=== PATIENT | female | born 1960 | race Caucasian/White ===

== ENCOUNTER → 2016-08-04 | Outpatient (CLI) | payer BC, OTHER | END | disposition home or self-care (01) | LOC: AMB 12:25 | PROC: 07BJ3ZX Excision of Left Inguinal Lymphatic, Percutaneous Approach, Diagnostic (ICD-10-PCS; principal; 2016-08-04) | DX: C85.90 Non-Hodgkin lymphoma, unspecified, unspecified site (principal); R19.09 Other intra-abdominal and pelvic swelling, mass and lump; K21.9 Gastro-esophageal reflux disease without esophagitis; E78.5 Hyperlipidemia, unspecified; E66.01 Morbid (severe) obesity due to excess calories; E55.9 Vitamin D deficiency, unspecified; Z83.3 Family history of diabetes mellitus; Z82.3 Family history of stroke; Z80.1 Family history of malignant neoplasm of trachea, bronchus and lung; Z82.49 Family history of ischemic heart disease and other diseases of the circulatory system; Z87.891 Personal history of nicotine dependence; Z88.0 Allergy status to penicillin; Z68.43 Body mass index [BMI] 50.0-59.9, adult | CPT/HCPCS: 88305 ==

== ENCOUNTER 2016-08-23 13:24 | Day surgery (SDC) | payer BC, OTHER ==
[~2016-08-23] VITALS: Ht 180.3 cm; Wt 155.0 kg
[~2016-08-23 13:24] MED LIST: COZAAR50 MG PO; MICROZIDE12.5 M1 PO; MOTRIN IB200 MG PO; NEXIUM20 MG PO; NEXIUM40 MG PO
[2016-08-23 14:03] VITALS: BP 143/80
[2016-08-23] MEDS ORDERED: NORCO 5/3251 TABLET PO (17:02)
[2016-08-23 19:08] VITALS: BP 127/79
[2016-08-23 19:45] VITALS: BP 159/80
[2016-08-26 08:36] LABS: INTERNAL CONTROL VALID? YES
== END 2016-08-23 19:53 | disposition home or self-care (01) ==
LOC: SDC 13:24
PROVIDERS: Surgery
PROC: 07BJ0ZX Excision of Left Inguinal Lymphatic, Open Approach, Diagnostic (ICD-10-PCS; principal; 2016-08-23)
DX: C85.15 Unspecified B-cell lymphoma, lymph nodes of inguinal region and lower limb (principal); E66.01 Morbid (severe) obesity due to excess calories; Z68.43 Body mass index [BMI] 50.0-59.9, adult; K21.9 Gastro-esophageal reflux disease without esophagitis; E78.5 Hyperlipidemia, unspecified; E55.9 Vitamin D deficiency, unspecified; Z87.891 Personal history of nicotine dependence; Z88.0 Allergy status to penicillin; Z88.5 Allergy status to narcotic agent
CPT/HCPCS: 84703; 88305; J0131; J0330; J0690; J1100; J1170; J1885; J2250; J2405; J2765; J3010; J7120

== ENCOUNTER → 2016-09-01 | Outpatient (CLI) | payer BC, OTHER ==
[~2016-09-01] VITALS: Ht 180.3 cm; Wt 155.4 kg
[~2016-09-01] MED LIST changes: +NORCO 5/3251 TABLET PO
== END | disposition home or self-care (01) ==
LOC: AMB 10:46
PROC: 0DJ08ZZ Inspection of Upper Intestinal Tract, Via Natural or Artificial Opening Endoscopic (ICD-10-PCS; principal; 2016-09-01)
DX: K21.9 Gastro-esophageal reflux disease without esophagitis (principal); I10 Essential (primary) hypertension; E66.01 Morbid (severe) obesity due to excess calories; Z87.891 Personal history of nicotine dependence; Z83.3 Family history of diabetes mellitus; Z82.49 Family history of ischemic heart disease and other diseases of the circulatory system; Z68.42 Body mass index [BMI] 45.0-49.9, adult
CPT/HCPCS: J2250; J2405; J3010

== ENCOUNTER 2016-09-08 12:00 | Day surgery (SDC) | payer BC, OTHER ==
[~2016-09-08] VITALS: Ht 177.8 cm; Wt 156.4 kg
[2016-09-08 13:01] VITALS: BP 155/91
[2016-09-08] MEDS ORDERED: NORCO 5/3251 TABLET PO (15:52)
[2016-09-08 16:51] VITALS: BP 126/62
[2016-09-08 18:10] VITALS: BP 149/71
[2016-09-09 09:14] LABS: INTERNAL CONTROL VALID? YES
== END 2016-09-08 18:15 | disposition home or self-care (01) ==
LOC: SDC 12:00 → 2SOUTH 14:30 → SDC 18:15
PROVIDERS: Surgery
PROC: 05HM33Z Insertion of Infusion Device into Right Internal Jugular Vein, Percutaneous Approach (ICD-10-PCS; principal; 2016-09-08)
DX: C83.35 Diffuse large B-cell lymphoma, lymph nodes of inguinal region and lower limb (principal); I10 Essential (primary) hypertension; I87.8 Other specified disorders of veins; E78.5 Hyperlipidemia, unspecified; E66.01 Morbid (severe) obesity due to excess calories; Z68.42 Body mass index [BMI] 45.0-49.9, adult; N28.1 Cyst of kidney, acquired; K21.9 Gastro-esophageal reflux disease without esophagitis; E55.9 Vitamin D deficiency, unspecified; Z87.891 Personal history of nicotine dependence; Z88.0 Allergy status to penicillin; Z83.3 Family history of diabetes mellitus; Z82.3 Family history of stroke; Z80.1 Family history of malignant neoplasm of trachea, bronchus and lung; Z82.49 Family history of ischemic heart disease and other diseases of the circulatory system
CPT/HCPCS: 71010; 84703; C1751; J0690; J2250; J2405; J2765; J3010; J3370; J7030

== ENCOUNTER → 2016-09-15 | Outpatient (CLI) | payer BC, OTHER | END | disposition home or self-care (01) | LOC: EKG 12:50 | DX: I27.2 Other secondary pulmonary hypertension (principal); R94.31 Abnormal electrocardiogram [ECG] [EKG] | CPT/HCPCS: 93306 ==

== ENCOUNTER 2016-12-08 08:50 | Day surgery (SDC) | payer BC, OTHER ==
[~2016-12-08] VITALS: Ht 177.8 cm; Wt 158.7 kg
[~2016-12-08 08:50] MED LIST changes: +ADVIL,NUPRIN,M200 MG PO; +CLARITIN,ALAVAR10 MG PO; +COMPAZINE10 MG PO; +PREDNISONE50 MG PO; +ZUPLENZ8 MG PO
[2016-12-08 09:55] VITALS: BP 135/83
[2016-12-08 09:56] VITALS: BP 135/83
[2016-12-08] MEDS ORDERED: NORCO 5/3251 TABLET PO (12:27)
[2016-12-08 13:15] VITALS: BP 125/80
[2016-12-08 13:42] VITALS: BP 148/73
== END 2016-12-08 14:10 | disposition home or self-care (01) ==
LOC: SDC
PROC: 0JPT0WZ Removal of Totally Implantable Vascular Access Device from Trunk Subcutaneous Tissue and Fascia, Open Approach (ICD-10-PCS; principal; 2016-12-08)
DX: Z45.2 Encounter for adjustment and management of vascular access device (principal); C83.35 Diffuse large B-cell lymphoma, lymph nodes of inguinal region and lower limb; Z92.21 Personal history of antineoplastic chemotherapy; E66.01 Morbid (severe) obesity due to excess calories; Z68.42 Body mass index [BMI] 45.0-49.9, adult; K21.9 Gastro-esophageal reflux disease without esophagitis; E78.5 Hyperlipidemia, unspecified; I10 Essential (primary) hypertension; I87.8 Other specified disorders of veins; Z80.1 Family history of malignant neoplasm of trachea, bronchus and lung; Z87.891 Personal history of nicotine dependence
CPT/HCPCS: J0690; J2250; J3010; Q0175

== ENCOUNTER → 2017-02-18 | Outpatient (CLI) | payer BC ==
[~2017-02-18] VITALS: Ht 177.8 cm; Wt 160.9 kg
== END | disposition home or self-care (01) ==
LOC: AMB 08:58
PROC: 0DBN8ZX Excision of Sigmoid Colon, Via Natural or Artificial Opening Endoscopic, Diagnostic (ICD-10-PCS; principal; 2017-02-18)
DX: Z12.11 Encounter for screening for malignant neoplasm of colon (principal); D12.5 Benign neoplasm of sigmoid colon; K57.30 Diverticulosis of large intestine without perforation or abscess without bleeding; C83.35 Diffuse large B-cell lymphoma, lymph nodes of inguinal region and lower limb; E66.01 Morbid (severe) obesity due to excess calories; Z68.43 Body mass index [BMI] 50.0-59.9, adult; K21.9 Gastro-esophageal reflux disease without esophagitis; E78.5 Hyperlipidemia, unspecified; I10 Essential (primary) hypertension; I87.8 Other specified disorders of veins; E55.9 Vitamin D deficiency, unspecified; Z87.891 Personal history of nicotine dependence; Z92.21 Personal history of antineoplastic chemotherapy; Z80.1 Family history of malignant neoplasm of trachea, bronchus and lung; Z82.49 Family history of ischemic heart disease and other diseases of the circulatory system; Z82.3 Family history of stroke; Z83.3 Family history of diabetes mellitus; Z88.0 Allergy status to penicillin; Z88.5 Allergy status to narcotic agent; Z91.09 Other allergy status, other than to drugs and biological substances
CPT/HCPCS: 88305; 93005; J2250